=== PATIENT | male | born 2000 | race Caucasian/White ===

== ENCOUNTER 2020-01-26 15:35 | Emergency (ER) | payer OTHER ==
[~2020-01-26] VITALS: Ht 175.3 cm; Wt 61.2 kg
[2020-01-26] MEDS ORDERED: SUPER THERAVIT1 EACH PO (15:44)
[2020-01-26] MEDS ORDERED: MELATONIN5 MG (15:44)
[2020-01-26] MEDS ORDERED: NAPROSYN500 MG PO (18:03)
[2020-01-26] MEDS ORDERED: LIDODERM1 EACH TOP (18:03)
[2020-01-26 18:19] VITALS: BP 120/71
== END 2020-01-26 18:21 | disposition home or self-care (01) ==
LOC: M.ERS 15:35
DX: S13.8XXA Sprain of joints and ligaments of other parts of neck, initial encounter (principal); S70.02XA Contusion of left hip, initial encounter; M94.0 Chondrocostal junction syndrome [Tietze]; V43.52XA Car driver injured in collision with other type car in traffic accident, initial encounter; Y93.89 Activity, other specified; Y92.89 Other specified places as the place of occurrence of the external cause; Y99.8 Other external cause status